=== PATIENT | male | born 1960 | race African-American/Black ===

== ENCOUNTER 2019-11-19 13:32 | Emergency (ER) | payer MEDICARE, OTHER ==
[~2019-11-19] VITALS: Ht 185.4 cm; Wt 78.9 kg
[2019-11-19] MEDS ORDERED: IV NS 0.9% 1,000 ML BAG IV ONE (14:00)
[2019-11-19] MEDS ORDERED: BACL10TA PO (14:06)
[2019-11-19] MEDS ORDERED: ISOS30TA6 PO (14:06)
[2019-11-19] MEDS ORDERED: BENZ1TAB7 PO (14:06)
[2019-11-19] MEDS ORDERED: HYDR-4077 PO (14:06)
[2019-11-19] MEDS ORDERED: HALO5TAB PO (14:06)
[2019-11-19] MEDS ORDERED: HALO10TA13 PO (14:06)
[2019-11-19] MEDS ORDERED: DIPH50CA4 PO (14:06)
[2019-11-19] MEDS ORDERED: FURO-144 PO (14:06)
--- NOTE | 2019-11-19 14:10 | NUR ---
PT AAOX4. BIB [facility] C/O GENERALIZED WEAKNESS. PT ABLE TO MOVE ALL EXTREMEITIES, NO NEURO DEFICIT. PT PLACED ON MONITOR AND PULSE OX. VSS. NO ACUTE DISTRES NOTED.
--- NOTE | 2019-11-19 14:11 | NUR ---
PT VSS, SAT AT 97% ON ROOM AIR. WILL CONTINUE TO MONITOR.
[2019-11-19 14:17] LABS: BASOPHILS # (AUTO) 0.1 /CMM (0.0-0.2); BASOPHILS % (AUTO) 1.3 % (0.0-2.0); EOSINOPHILS % (AUTO) 2.3 % (0.0-6.0); HEMATOCRIT 40 % (39-51); HEMOGLOBIN 13.2 g/dL (13.5-17.5); LYMPHOCYTES # (AUTO) 1.6 /CMM (0.8-4.8); LYMPHOCYTES % (AUTO) 21.1 % (20.0-44.0); MEAN CORPUSCULAR HGB CONC 33 g/dl (31.0-36.0); MEAN CORPUSCULAR VOLUME 78 fL (80-96); MONOCYTES # (AUTO) 0.7 /CMM (0.1-1.30); MONOCYTES % (AUTO) 9.3 % (2.0-12.0); NEUTROPHILS # (AUTO) 4.9 /CMM (1.8-8.9); PLATELET COUNT (AUTO) 183 /CMM (150-450); RED BLOOD CELL COUNT(AUTO) 5.13 MIL/uL (4.5-6.0); WHITE BLOOD COUNT (AUTO) 7.4 K/uL (4.3-11.0)
--- NOTE | 2019-11-19 14:20 | NUR ---
LABS COLLECTED AND FLUIDS STARTED.
[2019-11-19 14:29] LABS: CALCIUM, SERUM 9.7 mg/dL (8.5-10.1); CREATININE 1.2 mg/dL (0.6-1.3); POTASSIUM 3.8 mmol/L (3.5-5.1)
--- NOTE | 2019-11-19 14:30 | NUR ---
URINE COLLECTED AND SENT TO LAB
[2019-11-19 14:35] LABS: ALBUMIN 3.5 g/dL (3.4-5.0); BILIRUBIN,DIRECT 0.1 mg/dL (0.0-0.2); BILIRUBIN,TOTAL 0.2 mg/dL (0.2-1.0); TOTAL PROTEIN, SERUM 7.4 g/dL (6.4-8.2)
--- NOTE | 2019-11-19 14:35 | NUR ---
PT BROUGHT TO CT
[2019-11-19 14:37] LABS: APPEARANCE,URINE Clear (CLEAR); BILIRUBIN,URINE Negative (NEGATIVE); BLOOD, URINE Negative Ery/uL (NEGATIVE); COLOR,URINE Yellow (YELLOW); KETONES,URINE Negative (NEGATIVE); LEUKOCYTE ESTERASE ,URINE Negative (NEGATIVE); NITRITE, URINE Negative (NEGATIVE); PH,URINE 5.5 (5.0-8.0); PROTEIN,URINE Negative (NEGATIVE); UGLUCOSE Negative (NEGATIVE); UROBILINOGEN,URINE 0.2 EU/dL (0.2)
--- NOTE | 2019-11-19 15:11 | NUR ---
Patient is resting comfortably in bed. Easily aroused. VSS.
--- NOTE | 2019-11-19 15:48 | NUR ---
FLUID DC. PT VSS. PT ASLEEP.
--- NOTE | 2019-11-19 16:23 | NUR ---
FOOD GIVEN TO PT. VSS.
--- NOTE | 2019-11-19 16:32 | NUR ---
PT ABLE TO AMBULATE WITH STEADY GAIT.
--- NOTE | 2019-11-19 16:50 | NUR ---
PT READY TO BE DISCHARGED. AWAITING REQUEST FOR RIDE BACK.
--- NOTE | 2019-11-19 17:27 | NUR ---
PT CALLING HIS SISTER TO PICK HIM UP.
--- NOTE | 2019-11-19 17:37 | NUR ---
TRANSPORT ETA IS 2029 [address] [phone]
--- NOTE | 2019-11-19 21:15 | NUR ---
PT TAKEN TO [facility] AND BROUGHT BACK. WILL WAIT UNTIL MORNING TO SPEAK TO ASSEMBLY OPERATOR.
--- NOTE | 2019-11-19 23:00 | NUR ---
PT RESTING IN BED. VSS.
--- NOTE | 2019-11-20 01:15 | NUR ---
[facility] [employer] [facility] - [phone]
--- NOTE | 2019-11-20 02:17 | NUR ---
Patient is resting comfortably in bed. Easily aroused. VSS.
--- NOTE | 2019-11-20 08:46 | NUR ---
TIM ROJAS CALLED FOR EVAL [facility] D[facility] F[facility]ILITY [facility]
--- NOTE | 2019-11-20 08:47 | NUR ---
EQUIPMENT SERVICE ENGINEER contacted [facility] [phone] and spoke with Pratik, who informed EQUIPMENT SERVICE ENGINEER to send pt back home to his board and care if medically and psychiatrically cleared and they will pick him up on Saturday from his [facility] for the intensive outpatient program.
[2019-11-20 09:34] VITALS: BP 133/71
--- NOTE | 2019-11-20 09:34 | NUR ---
Patient discharged to home in stable condition. Written and verbal after care instructions given. Patient verbalizes understanding of instruction.
== END 2019-11-20 09:35 | disposition home or self-care (01) ==
LOC: ER 13:37
DX: E86.0 Dehydration (principal); F20.0 Paranoid schizophrenia; Z79.899 Other long term (current) drug therapy
CPT/HCPCS: 36415; 70450; 71045; 80048; 80076; 80305; 81001; 84484; 85025; 85730; 93005; 96360; 99285; J7030; 81000-TC